=== PATIENT | female | born 1985 | race African-American/Black ===

== ENCOUNTER 2017-03-07 13:55 | Emergency (ER) | payer MEDICAID ==
[2017-03-07 13:57] VITALS: BP 177/81; PULSE 75; RESP 15; TEMP 98.2; O2SAT 98
== END 2017-03-07 16:45 | disposition left against medical advice (07) ==
LOC: NED 13:55
DX: S61.219A Laceration without foreign body of unspecified finger without damage to nail, initial encounter (principal); X58.XXXA Exposure to other specified factors, initial encounter; Z53.21 Procedure and treatment not carried out due to patient leaving prior to being seen by health care provider
CPT/HCPCS: 99281

== ENCOUNTER 2017-06-09 10:12 | Emergency (ER) | payer OTHER, MEDICAID ==
[~2017-06-09] VITALS: Ht 157.5 cm; Wt 60.0 kg
[2017-06-09 10:15] VITALS: BP 134/62; PULSE 92; RESP 14; TEMP 98.7; O2SAT 97
== END 2017-06-09 13:38 | disposition left against medical advice (07) ==
LOC: NED 10:12
DX: Z04.1 Encounter for examination and observation following transport accident (principal)
CPT/HCPCS: 99281

== ENCOUNTER 2017-06-12 12:46 | Emergency (ER) | payer MEDICAID ==
[~2017-06-12] VITALS: Ht 157.5 cm; Wt 60.0 kg
[2017-06-12 12:47] VITALS: BP 116/71; PULSE 81; RESP 14; TEMP 98.8; O2SAT 96
[2017-06-12] MEDS ORDERED: CLIN1CAP6 PO (13:45)
--- NOTE | 2017-06-12 13:46 | PD ---
HPI Chief Complaint: Skin Problem Time Seen by Provider: 13:13 Travel History International Travel<30 days: No Contact w/Intl Traveler<30days: No Traveled to known affect area: No History of Present Illness HPI 31-year-old female here for evaluation of painful lump on her abdomen 2 days. Patient denies fever, chills, abdominal pain, nausea or vomiting. She reports the pain is constant, nonradiating. Symptom severity is mild. No alleviating factor. PFSH Past Medical History Asthma: Yes Diminished Hearing: No Genitourinary: Yes Respiratory: Yes (ASTHMA) Integumentary: Yes (eczema) Immunizations Current: Yes ?: Not : 3 Para: 2 Miscarriage: 0 : 1 Tubal Ligation: Yes Past Surgical History Abdominal Surgery: Yes (C SECTION X 2) Section: Yes (X2) Social History Alcohol Use: No Tobacco Use: No Substance Use: No Allergies-Medications (Allergen,Severity, Reaction): Coded Allergies: terbutaline (Unverified Allergy, Severe, Itching, 06/09/17) diatrizoate meglumine (Unverified Allergy, Intermediate, ITCH, 06/09/17) gadobenic acid (Unverified Allergy, Intermediate, ITCH, 06/09/17) gadodiamide (Unverified Allergy, Intermediate, ITCH, 06/09/17) gadoteridol (Unverified Allergy, Intermediate, ITCH, 06/09/17) iodixanol (Unverified Allergy, Intermediate, ITCH, 06/09/17) iohexol (Unverified Allergy, Intermediate, ITCH, 06/09/17) ibuprofen (Unverified Allergy, Unknown, HIVES, 06/09/17) Reported Meds & Prescriptions Reported Meds & Active Scripts Active No Active Prescriptions or Reported Medications Review of Systems Except as stated in HPI: all other systems reviewed are Neg General / Constitutional: No: Fever Physical Exam Narrative GENERAL: Well-nourished, well-developed patient. SKIN: Focused skin assessment warm/dry. 1X1 CM erythematous indurated area without fluctuance. HEAD: Normocephalic. EYES: No scleral icterus. No injection or drainage. NECK: Supple, trachea midline. No JVD or lymphadenopathy. CARDIOVASCULAR: Regular rate and rhythm without murmurs, gallops, or rubs. RESPIRATORY: Breath sounds equal bilaterally. No accessory muscle use. GASTROINTESTINAL: Abdomen soft, non-tender, nondistended. Data Data Last Documented VS Vital Signs Date Time Temp Pulse Resp B/P (MAP) Pulse Ox O2 Delivery O2 Flow Rate FiO2 06/12/17 13:20 78 16 06/12/17 12:47 98.8 116/71 (86) 96 MDM Medical Decision Making Medical Screen Exam Complete: Yes Emergency Medical Condition: Yes Differential Diagnosis Cellulitis, abscess, inflamed sebaceous cyst Narrative Course 31-year-old female here for evaluation of a painful lump on her abdomen 2 days. Patient denies fever or chills. On exam she has a 1 x 1 cm area of mild induration and erythema. The areas consistent with early abscess. Do not feel any fluctuance. It did not feel that incision and drainage at this time is appropriate. She will be put on antibiotics instructed to apply warm compresses and return in several days for I&D. Diagnosis Primary Impression: Abscess Additional Instructions: Take the antibiotics as prescribed. Apply warm compresses to the area times per day Return for follow-up of the area in 2 days. Scripts Clindamycin (Clindamycin) 300 Mg Cap 300 MG PO TID for Infection for 7 Days, CAP 0 Refills Prov: Roopa Morgan 06/12/17 Disposition: 01 DISCHARGE HOME Condition: Stable Roopa Morgan Jun 12, 2017 13:46
== END 2017-06-12 13:52 | disposition home or self-care (01) ==
LOC: NEPD 12:46
DX: L02.211 Cutaneous abscess of abdominal wall (principal); J45.909 Unspecified asthma, uncomplicated
CPT/HCPCS: 99283

== ENCOUNTER 2017-06-16 14:05 | Emergency (ER) | payer MEDICAID ==
[~2017-06-16] VITALS: Ht 157.5 cm; Wt 60.0 kg
[~2017-06-16 14:05] MED LIST: CLIN1CAP6 PO
[2017-06-16 14:11] VITALS: BP_SYST 117; BP_SYST 123; BP_DIAS 64; BP_DIAS 87; PULSE 104; PULSE 91; RESP 16; TEMP 97.8; TEMP 98.5; O2SAT 100; O2SAT 96
[2017-06-24] MEDS ORDERED: BENZ100 PO (20:17)
[2017-06-24] MEDS ORDERED: ALBUAER3 INH (20:17)
[2017-06-24] MEDS ORDERED: TRAZ100T6 PO (20:17)
[2017-06-24] MEDS ORDERED: FLUT50SP EACH NARE (20:17)
[2017-06-24] MEDS ORDERED: AMOX875T2 PO (20:17)
[2017-06-24] MEDS ORDERED: CYCL1TAB29 PO (22:37)
== END 2017-06-16 16:49 | disposition left against medical advice (07) ==
LOC: NED 14:05
DX: Z53.21 Procedure and treatment not carried out due to patient leaving prior to being seen by health care provider (principal)
CPT/HCPCS: 99281

== ENCOUNTER 2017-06-24 18:51 | Emergency (ER) | payer MEDICAID ==
[~2017-06-24] VITALS: Ht 157.5 cm; Wt 57.5 kg
[2017-06-24 18:52] VITALS: BP 113/66; PULSE 78; RESP 16; TEMP 99.1; O2SAT 99
[2017-06-24] MEDS ORDERED: TRAZ100T6 PO ×2 (20:17)
[2017-06-24] MEDS ORDERED: AMOX875T2 PO ×2 (20:17)
[2017-06-24] MEDS ORDERED: ALBUAER3 INH ×2 (20:17)
[2017-06-24] MEDS ORDERED: BENZ100 PO ×2 (20:17)
[2017-06-24] MEDS ORDERED: FLUT50SP EACH NARE ×2 (20:17)
[2017-06-24] MEDS ORDERED: SODIUM CHLORIDE 0.9% FLUSH 10 ML FLUSH IV FLUSH PRN ×2 (20:30)
[2017-06-24 20:57] LABS: AUTOMATED NEUTROPHIL # 3.4 TH/MM3 (1.8-7.7); BASOPHIL % 0.4 % (0.0-2.0); EOSINOPHIL # 0.2 TH/MM3 (0-0.4); EOSINOPHIL % 3.5 % (0.0-4.0); HEMATOCRIT 38.1 % (35.0-46.0); HEMOGLOBIN 12.5 GM/DL (11.6-15.3); LYMPH % 42.9 % (9.0-44.0); MEAN CORPUSCULAR HEMOGLOBIN 28.3 PG (27.0-34.0); MEAN CORPUSCULAR HGB CONC 32.9 % (32.0-36.0); MEAN PLATELET VOLUME 7.4 FL (7.0-11.0); MONO % 5.1 % (0.0-8.0); MONOCYTE # 0.4 TH/MM3 (0-0.9); NEUT % 48.1 % (16.0-70.0); PLATELET COUNT 315 TH/MM3 (150-450); RED BLOOD COUNT 4.42 MIL/MM3 (4.00-5.30); RED CELL DISTRIBUTION WIDTH 14.4 % (11.6-17.2); WHITE BLOOD COUNT 7.1 TH/MM3 (4.0-11.0)
[2017-06-24 21:15] LABS: ALKALINE PHOSPHATASE 50 U/L (45-117); ALT (GPT) 34 U/L (10-53); TOTAL BILIRUBIN ADULT 0.8 MG/DL (0.2-1.0); TOTAL PROTEIN 8.6 GM/DL (6.4-8.2)
--- NOTE | 2017-06-24 21:17 | PD ---
HPI Chief Complaint: Flank/Kidney Pain Time Seen by Provider: 20:15 Travel History International Travel<30 days: No Contact w/Intl Traveler<30days: No Traveled to known affect area: No History of Present Illness HPI Patient complaining of right kidney pain that began earlier today. Patient states she's had similar happen to the past. Patient is currently on clindamycin and Augmentin for an abscess on her abdomen and bronchitis. Reports pain radiates inferiorly. Patient denies any fevers, chest pain, shortness of breath, nausea, vomiting, loss change in bowel or bladder, or abdominal pain. Patient does report that she did start having some abnormal vaginal discharge describes as a thin white discharge that began shortly prior to return to the emergency department. Patient denies anything making this better or worse. PFSH Past Medical History Asthma: Yes Diminished Hearing: No Genitourinary: Yes Respiratory: Yes (BRONCHITIS) Integumentary: Yes (eczema) Immunizations Current: Yes Tetanus Vaccination: Unknown Influenza Vaccination: Yes ?: Not LMP: DEPO : 3 Para: 2 Miscarriage: 0 : 1 Tubal Ligation: Yes Past Surgical History Abdominal Surgery: Yes (C SECTION X 2) Section: Yes (X2) Social History Alcohol Use: No Tobacco Use: No Substance Use: No Allergies-Medications (Allergen,Severity, Reaction): Coded Allergies: terbutaline (Unverified Allergy, Severe, Itching, 06/09/17) diatrizoate meglumine (Unverified Allergy, Intermediate, ITCH, 06/09/17) gadobenic acid (Unverified Allergy, Intermediate, ITCH, 06/09/17) gadodiamide (Unverified Allergy, Intermediate, ITCH, 06/09/17) gadoteridol (Unverified Allergy, Intermediate, ITCH, 06/09/17) iodixanol (Unverified Allergy, Intermediate, ITCH, 06/09/17) iohexol (Unverified Allergy, Intermediate, ITCH, 06/09/17) ibuprofen (Unverified Allergy, Unknown, HIVES, 06/09/17) Reported Meds & Prescriptions Reported Meds & Active Scripts Active Flexeril (Cyclobenzaprine HCl) 10 Mg Tab 10 Mg PO Q8HR PRN Clindamycin (Clindamycin HCl) 300 Mg Cap 300 Mg PO TID 7 Days Reported Fluticasone Nasal [place] 50 Mcg/Act Naspr 100 Mcg EACH NARE BID 50 mcg/spray Trazodone (Trazodone HCl) 100 Mg Tablet 100 Mg PO HS Tessalon Perles (Benzonatate) 100 Mg Cap 100 Mg PO TID PRN Proair Hfa 8.5 GM Inh (Albuterol Sulfate) 90 Mcg/Act Aer 2 Puff INH Q4-6H PRN 108 mcg/actuation Amoxicillin-Clavulanate 875-125 mg Tab 875 Mg PO BID not for use in CrCl <30 mL/minute Review of Systems Except as stated in HPI: all other systems reviewed are Neg Physical Exam Narrative GENERAL: Well-developed, well nourished, in no acute distress, and non-ill appearing. SKIN: Focused skin assessment warm and dry. HEAD: Atraumatic. Normocephalic. EYES: Pupils equal and round. EOMI. No scleral icterus. No injection or drainage. ENT: No nasal bleeding or discharge. Mucous membranes pink and moist. NECK: Trachea midline. Supple. No nuclear rigidity. CARDIOVASCULAR: Regular rate and rhythm. No murmur appreciated. RESPIRATORY: No accessory muscle use. No respiratory distress. Clear to auscultation. Breath sounds equal bilaterally. GASTROINTESTINAL: Abdomen soft, non-tender, nondistended, and no guarding. Hepatic and splenic margins not palpable. Normal bowel sounds 4. No pulsatile mass. GENITOURINARY: Normal external genitalia without lesions or erythema. Vaginal vault without blood or drainage. Cervical os was closed without drainage. No cervical motion tenderness. Uterus nontender and nonenlarged. Bilateral adnexa nontender without masses. MUSCULOSKELETAL: No obvious deformities. No clubbing. No cyanosis. No edema. Full range of motion. Patient reports pain on back just inferior to CVA. NEUROLOGICAL: Awake and alert. No obvious cranial nerve deficits. Motor grossly within normal limits. Normal speech. PSYCHIATRIC: Appropriate mood and affect; insight and judgment normal. Data Data Last Documented VS Vital Signs Date Time Temp Pulse Resp B/P (MAP) Pulse Ox O2 Delivery O2 Flow Rate FiO2 06/24/17 22:37 06/24/17 22:37 99 Room Air 06/24/17 18:52 99.1 78 16 Orders Orders Complete Blood Count With Diff (06/24/17 20:20) Comprehensive Metabolic Panel (06/24/17 20:20) Lipase (06/24/17 20:20) Urinalysis - C+S If Indicated (06/24/17 20:20) Iv Access Insert/Monitor (06/24/17 20:20) Ecg Monitoring (06/24/17 20:20) Oximetry (06/24/17 20:20) Sodium Chloride 0.9% Flush (Ns Flush) (06/24/17 20:30) Gc And Chlamydia Pcr (06/24/17 20:20) Wet Prep Profile (06/24/17 20:20) Ed Urine Pregnancytest Poc (06/24/17 20:20) Ed Discharge Order (06/24/17 22:38) Labs Laboratory Tests Test 06/24/17 20:30 06/24/17 20:45 06/24/17 21:45 White Blood Count 7.1 TH/MM3 Red Blood Count 4.42 MIL/MM3 Hemoglobin 12.5 GM/DL Hematocrit 38.1 % Mean Corpuscular Volume 86.0 FL Mean Corpuscular Hemoglobin 28.3 PG Mean Corpuscular Hemoglobin Concent 32.9 % Red Cell Distribution Width 14.4 % Platelet Count 315 TH/MM3 Mean Platelet Volume 7.4 FL Neutrophils (%) (Auto) 48.1 % Lymphocytes (%) (Auto) 42.9 % Monocytes (%) (Auto) 5.1 % Eosinophils (%) (Auto) 3.5 % Basophils (%) (Auto) 0.4 % Neutrophils # (Auto) 3.4 TH/MM3 Lymphocytes # (Auto) 3.0 TH/MM3 Monocytes # (Auto) 0.4 TH/MM3 Eosinophils # (Auto) 0.2 TH/MM3 Basophils # (Auto) 0.0 TH/MM3 CBC Comment DIFF FINAL Differential Comment Blood Urea Nitrogen 4 MG/DL Creatinine 0.66 MG/DL Random Glucose 86 MG/DL Total Protein 8.6 GM/DL Albumin 4.1 GM/DL Calcium Level 9.2 MG/DL Alkaline Phosphatase 50 U/L Aspartate Amino Transf (AST/SGOT) 27 U/L Alanine Aminotransferase (ALT/SGPT) 34 U/L Total Bilirubin 0.8 MG/DL Sodium Level 135 MEQ/L Potassium Level 3.8 MEQ/L Chloride Level 104 MEQ/L Carbon Dioxide Level 19.9 MEQ/L Anion Gap 11 MEQ/L Estimat Glomerular Filtration Rate 126 ML/MIN Lipase 108 U/L Urine Color LIGHT-YELLOW Urine Turbidity CLEAR Urine pH 6.0 Urine Specific [place] 1.003 Urine Protein NEG mg/dL Urine Glucose (UA) NEG mg/dL Urine Ketones NEG mg/dL Urine Occult Blood NEG Urine Nitrite NEG Urine Bilirubin NEG Urine Urobilinogen LESS THAN 2.0 MG/DL Urine Leukocyte Esterase NEG Urine RBC 1 /hpf Urine WBC 2 /hpf Urine Squamous Epithelial Cells <1 /hpf Microscopic Urinalysis Comment CULT NOT INDICATED Clue Cells (Wet Prep) NONE SEEN Vaginal Trichomonas (Wet Prep) NONE SEEN Vaginal Yeast (Wet Prep) NONE SEEN Chlamydia trachomatis DNA (PCR) NOT DETECTED Neisseria gonorrhoeae DNA (PCR) NOT DETECTED MDM Medical Decision Making Medical Screen Exam Complete: Yes Emergency Medical Condition: Yes Differential Diagnosis UTI, renal calculi, pyelonephritis, PID, musculoskeletal pain, dehydration, Narrative Course Patient was seen and exam. Initial laboratory studies were ordered. I suspect patient's pain is musculoskeletal in nature secondary to her coughing from her bronchitis. There was no significant history of vomiting or diarrhea and no fever. The patient appeared comfortable and well hydrated and the abdominal exam was unremarkable. Laboratory evaluation revealed no significant abnormalities. There was no evidence of an acute, surgical abdomen at this time. There was no clinical evidence to support appendicitis, bowel obstruction , cholecystitis/cholelithiasis, pancreatitis, perforation of gastric ulcer, colitis, diverticulitis, bacterial peritonitis, obstruction, volvulus, hernial incarceration or strangulation at this time. There was no evidence to support vascular pathology such as AAA, mesenteric ischemia. There was also no clinical evidence by history, exam or risk factors to suggest atypical presentation of cardiac disease such as ACS, AMI or atypical angina. No evidence to suggest genitourinary etiology as well. Clinical picture was discussed with the patient , as well as plan of care. The patient was instructed to follow up with their physician. The patient is to return if worsens, pain worsens or changes, develop fever, inability to tolerate fluids with or without vomiting, unable to establish follow up or as needed. The patient agrees with plan. Patient in no obvious distress upon re-evaluation. All pertinent laboratory/ Radiology result(s) discussed with patient with the exception of gonorrhea and chlamydia that is pending at time of discharge. Discussed patient with Dr. Arias prior to discharge, who is in agreement with plan of care and disposition. Patient was asked if they wanted to speak to my attending, which the patient did not wish to do at this time. Any questions/concerns in reference to patient diagnosis/condition discussed and clarified prior to patient's discharge. Reinforced sheer importance of close follow up with patient 's primary physician or primary care clinic. Instructed patient to return to ED immediately, if symptoms return/worsen. Patient showed understanding of above instructions. Further instructions and recommendations were detailed in discharge paperwork. Patient ambulated without difficulty out of ED at discharge. Diagnosis Primary Impression: Musculoskeletal back pain Referrals: [facility] Patient Instructions: General Instructions, Musculoskeletal Pain (ED) Additional Instructions: Follow-up with your primary care physician in 1-5 days for reevaluation. Take all medication as prescribed. Use [id number] Tylenol as needed for additional pain control. Return to the emergency department if symptoms get worse. Med/Other Pt SpecificInfo: Prescription(s) given Scripts Cyclobenzaprine (Flexeril) 10 Mg Tab 10 MG PO Q8HR Y for MUSCLE PAIN, #9 TAB 0 Refills Prov: Sally Arias MD 06/24/17 Disposition: 01 DISCHARGE HOME Condition: Stable Pankaj Ibrahim Jun 24, 2017 21:17
[2017-06-24 21:24] LABS: ALBUMIN 4.1 GM/DL (3.4-5.0); AST (GOT) 27 U/L (15-37); BICARBONATE 19.9 MEQ/L (21.0-32.0); BLOOD UREA NITROGEN 4 MG/DL (7-18); CALCIUM 9.2 MG/DL (8.5-10.1); CHLORIDE 104 MEQ/L (98-107); CREATININE 0.66 MG/DL (0.50-1.00); GLOMERULAR FILTRATION RATE 126 ML/MIN (>89); GLUCOSE,RANDOM 86 MG/DL (74-106); LIPASE 108 U/L (73-393); SODIUM (NA) 135 MEQ/L (136-145)
[2017-06-24 21:27] LABS: BILIRUBIN, URINE NEG (NEG); BLOOD, URINE NEG (NEG); GLUCOSE,URINE NEG (NEG); KETONE, URINE NEG (NEG); NITRITE,URINE NEG (NEG); SQUAMOUS EPITHELIAL CELL URINE <1 /hpf (0-5); URINE COLOR LIGHT-YELLOW (YELLW/STRAW); URINE LEUKOCYTE ESTERASE NEG (NEG)
[2017-06-24 22:37] VITALS: O2SAT 99
[2017-06-24] MEDS ORDERED: CYCL1TAB29 PO ×2 (22:37)
== END 2017-06-24 22:48 | disposition home or self-care (01) ==
LOC: NEPE 18:51
DX: M54.9 Dorsalgia, unspecified (principal); J40 Bronchitis, not specified as acute or chronic; N89.8 Other specified noninflammatory disorders of vagina
CPT/HCPCS: 80053; 81001; 83690; 84703; 85025; 87210; 87491; 87591; 99283

== ENCOUNTER 2017-10-27 12:16 | Emergency (ER) | payer MEDICAID ==
[~2017-10-27] VITALS: Ht 157.5 cm; Wt 63.0 kg
[~2017-10-27 12:16] MED LIST changes: +ALBUAER3 INH; +AMOX875T2 PO; +BENZ100 PO; -CLIN1CAP6 PO; +CLIN300C5 PO; +CYCL10TA PO; +FLUT50SP EACH NARE; +TRAZ100T10 PO
[2017-10-27 12:31] VITALS: BP 108/70; PULSE 85; RESP 16; TEMP 98.1; O2SAT 99
[2017-10-27] MEDS ORDERED: TRAM50TA PO (12:45)
[2017-10-27] MEDS ORDERED: SILVER SULFADIAZINE 1% CR 50 GM JAR TOPICAL ONE (12:45)
[2017-10-27] MEDS ORDERED: SILV1CRE20 TOPICAL (12:45)
[2017-10-27] MEDS ORDERED: traMADol HCL 50 MG TAB PO ONE (12:45)
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
== END 2017-10-27 13:30 | disposition home or self-care (01) ==
LOC: NEPK 12:16
DX: T22.112A Burn of first degree of left forearm, initial encounter (principal); J45.909 Unspecified asthma, uncomplicated; X10.1XXA Contact with hot food, initial encounter; Y93.G3 Activity, cooking and baking
CPT/HCPCS: 16000

== ENCOUNTER 2018-01-16 12:40 | Emergency (ER) | payer MEDICAID ==
[~2018-01-16] VITALS: Ht 157.5 cm; Wt 68.0 kg
[~2018-01-16 12:40] MED LIST changes: -ALBUAER3 INH; -AMOX875T2 PO; -BENZ100 PO; -CLIN300C5 PO; -CYCL10TA PO; -FLUT50SP EACH NARE; +SILV1CRE20 TOPICAL; +TRAM50TA PO; -TRAZ100T10 PO
[2018-01-16 13:08] VITALS: BP 120/60; PULSE 86; RESP 18; TEMP 98.5; O2SAT 98
[2018-01-16] MEDS ORDERED: SODIUM CHLOR 0.9% 1000 ML INJ 1,000 ML IV SCH (13:25)
[2018-01-16] MEDS ORDERED: PROCHLORPERAZINE INJ 10 MG/2 ML VIAL IV PUSH ONE (13:30)
[2018-01-16] MEDS ORDERED: SODIUM CHLORIDE 0.9% FLUSH 10 ML FLUSH IV FLUSH PRN (13:30)
[2018-01-16] MEDS ORDERED: diphenhydrAMINE HCL 50 MG/ML VIAL IV PUSH ONE (13:30)
[2018-01-16] MEDS ORDERED: MORPHINE SULFATE 4 MG/ML INJ IV PUSH ONE (13:45)
[2018-01-16 14:00] VITALS: O2SAT 99
[2018-01-16] MEDS ORDERED: cefTRIAXone INJ 1,000 MG in SODIUM CHLORIDE 0.9% INJ 100 ML IV ONE (14:15)
[2018-01-16 14:22] LABS: AUTOMATED NEUTROPHIL # 7.9 TH/MM3 (1.8-7.7); BASOPHIL % 0.2 % (0.0-2.0); EOSINOPHIL # 0.2 TH/MM3 (0-0.4); EOSINOPHIL % 1.8 % (0.0-4.0); HEMATOCRIT 40.2 % (35.0-46.0); HEMOGLOBIN 13.4 GM/DL (11.6-15.3); LYMPH % 10.8 % (9.0-44.0); MEAN CELL VOLUME 86.2 FL (80.0-100.0); MEAN CORPUSCULAR HEMOGLOBIN 28.6 PG (27.0-34.0); MEAN CORPUSCULAR HGB CONC 33.2 % (32.0-36.0); MEAN PLATELET VOLUME 8.2 FL (7.0-11.0); MONOCYTE # 0.4 TH/MM3 (0-0.9); NEUT % 83.2 % (16.0-70.0); PLATELET COUNT 269 TH/MM3 (150-450); RED BLOOD COUNT 4.67 MIL/MM3 (4.00-5.30); RED CELL DISTRIBUTION WIDTH 13.4 % (11.6-17.2); WHITE BLOOD COUNT 9.5 TH/MM3 (4.0-11.0)
[2018-01-16] MEDS ORDERED: DOXY100C PO (14:34)
[2018-01-16] MEDS ORDERED: METR-1 PO (14:34)
--- NOTE | 2018-01-16 14:35 | PD ---
HPI . Abdominal pain Chief Complaint: Abdominal Pain Time Seen by Provider: 13:19 Travel History International Travel<30 days: No Contact w/Intl Traveler<30days: No Traveled to known affect area: No History of Present Illness HPI Patient presents with a chief complaint of abdominal pain. She states that the abdominal pain is diffuse but that it hurts the worst in the left lower quadrant. Onset of symptoms was today. It is associated with vomiting. She states that she had a fever last night. She rates her pain at 9/10. There have been no modifying factors. She denies diarrhea. She denies any urinary tract symptoms. She denies any [employer] symptoms. PFSH Past Medical History Asthma: Yes Diminished Hearing: No Genitourinary: Yes Reproductive: Yes (CHILDBIRTH [birth year] BY C SECTION) Respiratory: Yes (BRONCHITIS) Integumentary: Yes (eczema) Immunizations Current: Yes ?: Unknown LMP: UNKNOWN : 3 Para: 2 Miscarriage: 0 : 1 Tubal Ligation: Yes Past Surgical History Abdominal Surgery: Yes (C SECTION X 2) Section: Yes (X2) Social History Alcohol Use: No Tobacco Use: No Substance Use: No Allergies-Medications (Allergen,Severity, Reaction): Coded Allergies: terbutaline (Unverified Allergy, Severe, Itching, 10/27/17) diatrizoate meglumine (Unverified Allergy, Intermediate, ITCH, 10/27/17) gadobenic acid (Unverified Allergy, Intermediate, ITCH, 10/27/17) gadodiamide (Unverified Allergy, Intermediate, ITCH, 10/27/17) gadoteridol (Unverified Allergy, Intermediate, ITCH, 10/27/17) iodixanol (Unverified Allergy, Intermediate, ITCH, 10/27/17) iohexol (Unverified Allergy, Intermediate, ITCH, 10/27/17) ibuprofen (Unverified Allergy, Unknown, HIVES, 10/27/17) Reported Meds & Prescriptions Reported Meds & Active Scripts Active Flagyl (Metronidazole) 500 Mg Tab 500 Mg PO BID 7 Days Doxycycline Hyclate 100 Mg Cap 100 Mg PO BID Tramadol (Tramadol HCl) 50 Mg Tab 50 Mg PO Q6H PRN Silvadene Topical (Silver Sulfadiazine) 1 % Cream 1 Applic TOPICAL BID Review of Systems Except as stated in HPI: all other systems reviewed are Neg General / Constitutional: Positive: Fever Gastrointestinal: Positive: Nausea, Vomiting, Abdominal Pain, No: Diarrhea, Constipation Genitourinary: No: Urgency, Frequency, Dysuria, Discharge, Vaginal Bleeding Physical Exam Narrative GENERAL: Awake and alert in no acute distress. SKIN: warm/dry. HEAD: Normocephalic. Atraumatic. EYES: Pupils equal and round. No scleral icterus. No injection or drainage. ENT: No nasal bleeding or discharge. Mucous membranes pink and moist. NECK: Trachea midline. Full range of motion without pain.. CARDIOVASCULAR: Regular rate and rhythm. Heart sounds normal. RESPIRATORY: No accessory muscle use. Clear to auscultation. Breath sounds equal bilaterally. GASTROINTESTINAL: Abdomen soft. Left lower quadrant tenderness. No guarding or rebound. Bowel sounds present. Nondistended. : Normal female external genitalia. No discharge noted in the vaginal vault. Positive cervical motion tenderness and bilateral adnexal tenderness. The patient reported inability to produce a urine sample. Therefore, I did a cath urine during the pelvic exam. The urine is grossly clear. MUSCULOSKELETAL: No obvious deformities. NEUROLOGICAL: Awake and alert. No obvious cranial nerve deficits. Motor grossly within normal limits. Normal speech. PSYCHIATRIC: Appropriate mood and affect; insight and judgment normal. Data Data Last Documented VS Vital Signs Date Time Temp Pulse Resp B/P (MAP) Pulse Ox O2 Delivery O2 Flow Rate FiO2 01/16/18 14:00 99 Room Air 01/16/18 13:08 98.5 86 18 120/60 (80) Orders Orders Complete Blood Count With Diff (01/16/18 13:25) Comprehensive Metabolic Panel (01/16/18 13:25) Lipase (01/16/18 13:25) Urinalysis - C+S If Indicated (01/16/18 13:25) Iv Access Insert/Monitor (01/16/18 13:25) Ecg Monitoring (01/16/18 13:25) Oximetry (01/16/18 13:25) Sodium Chlor 0.9% 1000 Ml Inj (Ns 1000 M (01/16/18 13:25) Sodium Chloride 0.9% Flush (Ns Flush) (01/16/18 13:30) Ed Urine Pregnancytest Poc (01/16/18 13:25) Diphenhydramine Inj (Benadryl Inj) (01/16/18 13:30) Prochlorperazine Inj (Compazine Inj) (01/16/18 13:30) Gc And Chlamydia Pcr (01/16/18 13:25) Wet Prep Profile (01/16/18 13:25) Morphine Inj (Morphine Inj) (01/16/18 13:45) Ceftriaxone Inj (Rocephin Inj) (01/16/18 14:15) Labs Laboratory Tests Test 01/16/18 13:45 01/16/18 14:02 White Blood Count 9.5 TH/MM3 Red Blood Count 4.67 MIL/MM3 Hemoglobin 13.4 GM/DL Hematocrit 40.2 % Mean Corpuscular Volume 86.2 FL Mean Corpuscular Hemoglobin 28.6 PG Mean Corpuscular Hemoglobin Concent 33.2 % Red Cell Distribution Width 13.4 % Platelet Count 269 TH/MM3 Mean Platelet Volume 8.2 FL Neutrophils (%) (Auto) 83.2 % Lymphocytes (%) (Auto) 10.8 % Monocytes (%) (Auto) 4.0 % Eosinophils (%) (Auto) 1.8 % Basophils (%) (Auto) 0.2 % Neutrophils # (Auto) 7.9 TH/MM3 Lymphocytes # (Auto) 1.0 TH/MM3 Monocytes # (Auto) 0.4 TH/MM3 Eosinophils # (Auto) 0.2 TH/MM3 Basophils # (Auto) 0.0 TH/MM3 CBC Comment DIFF FINAL Differential Comment Blood Urea Nitrogen 4 MG/DL Creatinine 0.61 MG/DL Random Glucose 96 MG/DL Total Protein 8.1 GM/DL Albumin 3.7 GM/DL Calcium Level 8.7 MG/DL Alkaline Phosphatase 66 U/L Aspartate Amino Transf (AST/SGOT) 22 U/L Alanine Aminotransferase (ALT/SGPT) 33 U/L Total Bilirubin 0.5 MG/DL Sodium Level 137 MEQ/L Potassium Level 3.9 MEQ/L Chloride Level 105 MEQ/L Carbon Dioxide Level 24.1 MEQ/L Anion Gap 8 MEQ/L Estimat Glomerular Filtration Rate 138 ML/MIN Lipase 63 U/L Urine Color YELLOW Urine Turbidity CLEAR Urine pH 8.0 Urine Specific [place] 1.022 Urine Protein TRACE mg/dL Urine Glucose (UA) NEG mg/dL Urine Ketones NEG mg/dL Urine Occult Blood NEG Urine Nitrite NEG Urine Bilirubin NEG Urine Urobilinogen LESS THAN 2.0 MG/DL Urine Leukocyte Esterase TRACE Urine RBC LESS THAN 1 /hpf Urine WBC 5 /hpf Urine Squamous Epithelial Cells <1 /hpf Urine Transitional Epithelial Cells <1 /hpf Urine Mucus FEW /lpf Microscopic Urinalysis Comment CATH-CULT NOT IND Urine Collection Time Clue Cells (Wet Prep) NONE SEEN Vaginal Trichomonas (Wet Prep) NONE SEEN Vaginal Yeast (Wet Prep) NONE SEEN MDM Medical Decision Making Medical Screen Exam Complete: Yes Emergency Medical Condition: Yes Differential Diagnosis Differential diagnosis of abdominal pain includes but is not limited to gastritis, pancreatitis, hepatitis, gastroenteritis, constipation, urinary retention, peptic ulcer disease, diverticulitis or appendicitis Narrative Course Patient presents with a chief complaint of left lower quadrant abdominal pain. She has tenderness on palpation of the left lower quadrant but also has cervical motion tenderness with bilateral adnexal tenderness. She has an IV so she will be given Rocephin IV. CBC & BMP Diagram 01/16/18 13:45 Total Protein 8.1, Albumin 3.7, Calcium Level 8.7, Alkaline Phosphatase 66, Aspartate Amino Transf (AST/SGOT) 22, Alanine Aminotransferase (ALT/SGPT) 33, Total Bilirubin 0.5 UA>>neg HCG>>neg wet prep>>neg She will be discharged home with prescriptions for doxycycline and Flagyl. She has PID by physical exam. Diagnosis Primary Impression: Abdominal pain Qualified Codes: R10.32 - Left lower quadrant pain Additional Impression: Pelvic inflammatory disease Patient Instructions: General Instructions, Pelvic Inflammatory Disease (DC) Med/Other Pt SpecificInfo: Prescription(s) given Scripts Metronidazole (Flagyl) 500 Mg Tab 500 MG PO BID for Infection for 7 Days, #14 TAB 0 Refills Prov: Michelle Hercules MD 01/16/18 Doxycycline Hyclate (Doxycycline Hyclate) 100 Mg Cap 100 MG PO BID for Infection, #20 CAP 0 Refills Prov: Michelle Hercules MD 01/16/18 Disposition: DISCHARGE HOME Condition: Stable Michelle Hercules MD January 16, 2018 14:35
[2018-01-16 14:46] LABS: ALBUMIN 3.7 GM/DL (3.4-5.0); ALT (GPT) 33 U/L (10-53); AST (GOT) 22 U/L (15-37); BICARBONATE 24.1 MEQ/L (21.0-32.0); BLOOD UREA NITROGEN 4 MG/DL (7-18); CALCIUM 8.7 MG/DL (8.5-10.1); CHLORIDE 105 MEQ/L (98-107); CREATININE 0.61 MG/DL (0.50-1.00); GLOMERULAR FILTRATION RATE 138 ML/MIN (>89); GLUCOSE,RANDOM 96 MG/DL (74-106); SODIUM (NA) 137 MEQ/L (136-145)
[2018-01-16 14:47] LABS: ALKALINE PHOSPHATASE 66 U/L (45-117); TOTAL BILIRUBIN ADULT 0.5 MG/DL (0.2-1.0); TOTAL PROTEIN 8.1 GM/DL (6.4-8.2)
[2018-01-16 14:51] LABS: BILIRUBIN, URINE NEG (NEG); BLOOD, URINE NEG (NEG); GLUCOSE,URINE NEG (NEG); KETONE, URINE NEG (NEG); MUCUS URINE FEW /lpf (OCC); NITRITE,URINE NEG (NEG); SQUAMOUS EPITHELIAL CELL URINE <1 /hpf (0-5); TRANSITIONAL EPI CELLS, URINE <1 /hpf; URINE COLOR YELLOW (YELLW/STRAW); URINE LEUKOCYTE ESTERASE TRACE (NEG)
== END 2018-01-16 15:42 | disposition home or self-care (01) ==
LOC: NEPD 12:40
DX: R10.32 Left lower quadrant pain (principal); N73.9 Female pelvic inflammatory disease, unspecified; R50.9 Fever, unspecified; R11.2 Nausea with vomiting, unspecified; Z87.09 Personal history of other diseases of the respiratory system; Z87.448 Personal history of other diseases of urinary system; Z87.2 Personal history of diseases of the skin and subcutaneous tissue
CPT/HCPCS: 80053; 81001; 83690; 84703; 85025; 87210; 87491; 87591; 96374; 96375; 99284; J0696; J0780; J1200; J2270; J7030; P9612